=== PATIENT | female | born 1990 | race Caucasian/White ===

== ENCOUNTER 2019-09-17 10:00 | Inpatient (IN) | payer BC ==
[2019-09-13 13:51] VITALS: BMI 39.5
[2019-09-17] MEDS ORDERED: CITRIC ACID-SODIUM CITRATE 15 ML CUP PO ONE (10:04)
[2019-09-17] MEDS ORDERED: LACTATED RINGERS 1,000 ML IV ONE (10:04)
[2019-09-17] MEDS: LACTATED RINGERS 1,000 ML IV SCH ×5 (10:22→23:20)
[2019-09-17 11:56] LABS: Basophils % (A) 0 %; Eosinophils # (A) 0.1 k/uL (0-0.7); Eosinophils % (A) 2 %; HCT 32.7 % (34.0-46.0); HGB 11.6 gm/dL (11.4-16.0); Lymphocytes # (A) 1.5 k/uL (1.0-4.8); Lymphocytes % (A) 20 %; MCH 30.1 pg (25.0-35.0); MCHC 35.4 g/dL (31.0-37.0); MCV 84.9 fL (80.0-100.0); Mean Platelet Volume 9.5; Monocytes # (A) 0.4 k/uL (0-1.0); Monocytes % (A) 5 %; Neutrophils # (A) 5.4 k/uL (1.3-7.7); Neutrophils % (A) 72 %; Platelet Count 172 k/uL (150-450); RBC 3.85 m/uL (3.80-5.40); RDW 13.5 % (11.5-15.5); WBC 7.4 k/uL (3.8-10.6)
--- NOTE | 2019-09-17 11:56 | P.HPOB ---
History of Present Illness H&P Date: 09/17/19 Chief Complaint: 39-0/7 weeks, large for gestational age fetus The patient is a 28-year-old 1 para 0 admitted at 39-0/7 weeks as established by in vitro fertilization dating parameters. She is admitted for an elective primary low-transverse section secondary to findings of macrosomia with estimated weight at greater than the 99th percentile at 35 weeks and is anticipated possible weight of well over 4000 g. Her has been otherwise uncomplicated and group B strep status is negative. On labor and delivery, all signs are reassuring. Obstetrical history: 1 para 0 with current statistics listed above. EDC of 09/24/2019 was established by in vitro fertilization dating parameters. Laboratory workup demonstrates a blood type of O+ with a negative antibody screen. Rubella status is immune. Remainder of the laboratory workup was within normal limits. Second trimester Glucola is normal and group B strep status is negative. Gynecologic history: Unremarkable with no history of any infections to include STDs. Review of Systems Review of systems is confined to history of present illness. Past Medical History Past Medical History: No Reported History History of Any Multi-Drug Resistant Organisms: None Reported Additional Past Surgical History / Comment(s): IVF procedures, wisdom teeth removed Past Anesthesia/Blood Transfusion Reactions: No Reported Reaction Past Psychological History: No Psychological Hx Reported Smoking Status: Never smoker Past Alcohol Use History: None Reported Past Drug Use History: None Reported - Past Family History Mother Family Medical History: No Reported History Medications and Allergies Home Medications Medication Instructions Recorded Confirmed Type Pnv No.95/Ferrous Fum/Folic AC 1 each PO DAILY 09/13/19 09/17/19 History [ Multivitamin Tablet] Allergies Allergy/AdvReac Type Severity Reaction Status Date / Time No Known Allergies Allergy Verified 09/17/19 10:19 Exam Vital Signs Temp Pulse Resp BP 09/17/19 10:02 97.8 F 85 18 146/91 Intake and Output 09/16/19 09/17/19 09/17/19 22:59 06:59 14:59 Other: Weight 111.13 kg In general, this is a well-developed, well-nourished white female in no acute distress. Her heart has a regular rhythm and rate without murmur. Her lungs are clear to auscultation bilaterally in all collins. Her abdomen is gravid, non distended, has normal active bowel sounds, soft, nontender, and without any palpable masses aside from uterine fundus. Her extremities are without any cyanosis, clubbing, or significant edema and are nontender to palpation. Digital cervical examination is deferred. Assessment and Plan (1) Term Current Visit: Yes Status: Acute Code(s): Z34.90 - ENCNTR FOR SUPRVSN OF NORMAL , UNSP, UNSP TRIMESTER SNOMED Code(s): 86017628 (2) Large for gestational age fetus Current Visit: Yes Status: Acute Code(s): NVB9863 - SNOMED Code(s): 060871295 Plan: The options under the circumstances of a suspected macrosomic fetus had been thoroughly discussed in the office in the decision had been made to proceed with primary low-transverse section secondary to the suspected size of the fetus and potential risk for injury either to mother or baby. As result, she'll be taken to the operating room for primary low-transverse section. The risks and complications of the procedure itself had been thoroughly discussed and she has understood and agreed to proceed.
[2019-09-17] MEDS ORDERED: KETOROLAC 30 MG/ML 1 ML VIAL ONE (12:07)
[2019-09-17] MEDS ORDERED: MORPHINE SULFATE (PF) 0.3 MG/0.3 ML SYR ONE (12:07)
[2019-09-17] MEDS ORDERED: OXYTOCIN 10 UNIT/ML 1 ML VIAL ONE (12:07)
[2019-09-17] MEDS ORDERED: NALBUPHINE 10 MG/ML (1 ML AMP) ONE (12:07)
[2019-09-17] MEDS ORDERED: ONDANSETRON 4 MG/2 ML VIAL ONE (12:07)
[2019-09-17] MEDS ORDERED: NALOXONE 0.4 MG/ML 1 ML VIAL IV PRN (12:56)
[2019-09-17] MEDS ORDERED: HYDROmorphone 0.5 MG/0.5 ML SYRINGE IVP PRN (12:56)
[2019-09-17] MEDS ORDERED: diphenhydrAMINE 50 MG/ML 1 ML VIAL IVP PRN ×2 (12:56→13:07)
[2019-09-17] MEDS ORDERED: ONDANSETRON 4 MG/2 ML VIAL IVP PRN (12:56)
[2019-09-17] MEDS ORDERED: METOCLOPRAMIDE 5 MG/ML 2 ML VIAL IVP PRN (13:07)
[2019-09-17] MEDS ORDERED: LANOLIN CREAM 5 GM TUBE TOPICAL PRN (13:07)
[2019-09-17] MEDS ORDERED: diphenhydrAMINE 50 MG CAP PO PRN (13:07)
[2019-09-17] MEDS ORDERED: HYDROcodone/APAP 7.5-325MG 1 EACH TAB PO PRN (13:07)
[2019-09-17] MEDS ORDERED: HYDROcodone/APAP 5-325MG 1 EACH TAB PO PRN (13:07)
[2019-09-17] MEDS ORDERED: diphenhydrAMINE 25 MG CAP PO PRN (13:07)
[2019-09-17] MEDS ORDERED: ZOLPIDEM 5 MG TAB PO PRN (13:07)
[2019-09-17] MEDS ORDERED: SIMETHICONE 80 MG CHEWABLE PO PRN (13:07)
[2019-09-17] MEDS ORDERED: OXYTOCIN 20 UNITS/1000 ML NS 1,000 ML IV SCH (13:15)
--- NOTE | 2019-09-17 13:15 | P.OP ---
Date of Procedure: 09/17/19 Preoperative Diagnosis: #1. 39-0/7 weeks, suspected macrosomia Postoperative Diagnosis: Same Procedure(s) Performed: #1. Primary low-transverse section Anesthesia: spinal Surgeon: Montez Johnston Licensed Life And Health Agent #1: Terri Adams Estimated Blood Loss (ml): 455 IV fluids (ml): 1,100 Urine output (ml): 200 Pathology: none sent Condition: stable Disposition: floor Operative Findings: The patient was taken the operating room where she was delivered by primary low- transverse section of a viable 9 lbs. 10 oz. baby boy with Apgars of 9 at 1 minute and 9 at 5 minutes delivered in the left occiput anterior position. The placenta was delivered spontaneously, intact, and grossly normal with a grossly normal three-vessel cord. There was a true knot noted in the cord. The uterus, tubes, and ovaries were entirely normal to inspection with the exception of a very small less than 2 cm subserosal fibroid on the lowest portion of the fundus on the right side above the level of the lower uterine segment incision. Description of Procedure: The patient was prepped and draped in usual fashion after spinal anesthesia was administered by the anesthesiologist. A Pfannenstiel incision was made and extended into the abdominal cavity without difficulty. The bladder peritoneum was well distal to the intended site of incision was left intact. A 2 cm incision was made in the transverse plane of the lower uterine segment to enter the uterus at which time a copious amount of clear fluid was noted. The incision was extended in both directions using the bandage scissors. The head was delivered up and through the incision where the nose and mouth were thoroughly suctioned. Remainder of the infant was delivered onto the field where the cord was doubly clamped, cut, and the infant passed for resuscitative measures with weight and Apgars as noted above. There was noted to be a true knot in the cord. A segment of cord was doubly clamped, cut, and set aside s hould cord gases become necessary. The placenta was delivered spontaneously, intact, and grossly normal as noted above with uterine fundal massage and gentle traction. The uterus was exteriorized and the interior cavity of the uterus swept of any remaining placental or membranous fragments. The margins of the incision were grasped with Pemberton clamps and the incision closed in 2 layers. The first layer was a running locking stitch of 0 chromic catgut from margin to margin followed by a running imbricating layer of 0 chromic catgut from margin to margin. Following closure, there was noted be 2 small points of ongoing oozing, one at each angle. Each was made hemostatic with a [id number]-bhpbd stitch of 0 chromic catgut. The posterior cul-de-sac was suctioned with a guard as well as a laparotomy sponge and the uterine and ovarian findings are as noted above, normal aside from a small fibroid on the left lower portion of the anterior uterus. The uterus was replaced within the abdominal cavity and the gutters swept of any remaining blood, fluid, or clot. Careful examination incision demonstrated excellent hemostasis. Any small points of bleeding were made hemostatic with the Bovie. After ensuring hemostasis, the parietal peritoneum was loosely reapproximated in the layer of muscles examined and made hemostatic with the Bovie. The fascia was closed with 2 running stitches of 0 Vicryl proceeding from the lateral margins to the midpoint. The subcutaneous tissues were irrigated, made hemostatic with the Bovie, and closed with a running stitch of 30 plain catgut from margin to margin. The skin was retracted with a running subcuticular stitch of 4-0 Vicryl followed by half-inch Steri-Strips placed with Mastisol. Estimated blood loss for the entire case was 455 mL. There were no complications. All sponge, instrument, and needle counts were correct. The patient tolerated the procedure well and proceeded to the recovery room in stable condition. Both mother and infant are resting comfortably in recovery.
[2019-09-17] MEDS: SENNOSIDES-DOCUSATE SODIUM 1 EACH TAB PO SCH (20:48)
[2019-09-17] MEDS: KETOROLAC 30 MG/ML 1 ML VIAL IVP PRN (20:48)
[2019-09-17] MEDS: ACETAMINOPHEN TAB 325 MG TAB PO PRN (23:48)
[2019-09-18] MEDS: KETOROLAC 30 MG/ML 1 ML VIAL IVP PRN ×2 (03:17→10:57)
[2019-09-18] MEDS: LACTATED RINGERS 1,000 ML IV SCH (04:12)
[2019-09-18 06:12] LABS: Basophils % (A) 0 %; Eosinophils # (A) 0.1 k/uL (0-0.7); Eosinophils % (A) 1 %; HCT 32.4 % (34.0-46.0); Lymphocytes # (A) 1.9 k/uL (1.0-4.8); Lymphocytes % (A) 17 %; MCH 29.2 pg (25.0-35.0); MCHC 34.1 g/dL (31.0-37.0); MCV 85.7 fL (80.0-100.0); Mean Platelet Volume 9.5; Monocytes # (A) 0.6 k/uL (0-1.0); Monocytes % (A) 5 %; Neutrophils # (A) 8.9 k/uL (1.3-7.7); Neutrophils % (A) 76 %; Platelet Count 162 k/uL (150-450); RBC 3.78 m/uL (3.80-5.40); RDW 13.5 % (11.5-15.5); WBC 11.6 k/uL (3.8-10.6)
--- NOTE | 2019-09-18 06:46 | P.PN ---
Progress Note - Text Progress Note Date: 09/18/19 Postoperative day 1 status post section under spinal anesthesia and in trathecal Duramorph for postoperative analgesia.The patient is doing well, there is mild generalized skin itching. There are no other anesthesia related complications. The patient denies any paresthesia or weakness in the lower extremities. Further management as per the patient primary team.
--- NOTE | 2019-09-18 07:52 | P.PNOBGPC ---
Subjective - Subjective Patient reports: Reports appetite normal, Reports voiding normally, Reports pain well controlled, Reports ambulating normally : doing well, nursing well Objective - Vital Signs Latest vital signs: Vital Signs Temp Pulse Resp BP Pulse Ox 09/18/19 07:00 16 09/18/19 04:12 16 96 09/18/19 03:40 97.8 F 71 16 139/93 96 09/18/19 01:00 16 97 09/17/19 23:57 98.2 F 69 16 136/89 97 09/17/19 23:00 16 09/17/19 21:00 16 96 09/17/19 20:00 16 134/94 96 09/17/19 19:00 97.7 F 64 16 143/96 98 09/17/19 17:56 98 09/17/19 17:00 16 09/17/19 15:44 16 98 09/17/19 15:05 97.1 F L 72 16 138/90 98 09/17/19 14:22 73 18 127/92 98 09/17/19 14:07 79 16 142/74 98 09/17/19 13:56 16 99 09/17/19 13:37 60 16 134/60 95 09/17/19 13:21 65 16 122/72 96 09/17/19 13:07 97.1 F L 55 L 16 122/63 98 09/17/19 12:56 16 96 09/17/19 10:02 97.8 F 85 18 146/91 Intake and Output 09/17/19 09/18/19 09/18/19 22:59 06:59 14:59 Intake Total 375 Output Total 800 350 Balance -425 -350 Intake: IV 375 Output: Urine 700 350 Uretheral (Sanchez) 300 350 Emesis 100 Other: # Voids 0 - Exam Extremities: Present: normal Abdomen: Present: normal appearance, soft. Absent: distention, tenderness Incision: Present: normal, dry, intact Uterus: Present: normal, firm (The uterine fundus is tonic and minimally tender below the umbilicus.) - Labs Labs: Abnormal Lab Results - Last 24 Hours (Table) 09/17/19 09/18/19 Range/Units 11:37 05:52 WBC 11.6 H (3.8-10.6) k/uL RBC 3.78 L (3.80-5.40) m/uL Hgb 11.0 L (11.4-16.0) gm/dL Hct 32.7 L 32.4 L (34.0-46.0) % Neutrophils # 8.9 H (1.3-7.7) k/uL Assessment and Plan (1) Term Current Visit: Yes Status: Acute Code(s): Z34.90 - ENCNTR FOR SUPRVSN OF NORMAL , UNSP, UNSP TRIMESTER SNOMED Code(s): 32754656 (2) Large for gestational age fetus Current Visit: Yes Status: Acute Code(s): MFG7084 - SNOMED Code(s): 583596917 (3) S/P section Current Visit: Yes Status: Acute Code(s): Z98.891 - HISTORY OF UTERINE SCAR FROM PREVIOUS SURGERY SNOMED Code(s): 973154203 Plan: Continue routine postoperative care. I would anticipate possible discharge home tomorrow pending no complications. The patient has not yet voided on her own but I anticipate that resolving this morning as well. IV fluids will continue until she does so. I have encouraged ambulate in the hallways routinely.
[2019-09-18] MEDS: SENNOSIDES-DOCUSATE SODIUM 1 EACH TAB PO SCH ×2 (08:36→19:31)
[2019-09-18] MEDS: ACETAMINOPHEN TAB 325 MG TAB PO PRN ×3 (08:36→21:32)
[2019-09-18] MEDS: IBUPROFEN 600 MG TAB PO PRN (19:31)
[2019-09-19] MEDS: IBUPROFEN 600 MG TAB PO PRN ×2 (03:36→10:04)
[2019-09-19] MEDS: ACETAMINOPHEN TAB 325 MG TAB PO PRN (05:48)
[2019-09-19] MEDS: SENNOSIDES-DOCUSATE SODIUM 1 EACH TAB PO SCH (08:16)
--- NOTE | 2019-09-19 08:49 | P.DS ---
Providers Date of admission: 09/17/19 10:00 Expected date of discharge: 09/19/19 Attending physician: Montez Johnston Primary care physician: Stated None - Discharge Diagnosis(es) (1) Term Current Visit: Yes Status: Acute (2) Large for gestational age fetus Current Visit: Yes Status: Acute (3) S/P section Current Visit: Yes Status: Acute Hospital Course: The patient is a 28-year-old 1 para 0 admitted at 39-0/7 weeks by good dating parameters. She is admitted for elective primary low-transverse section secondary to suspected significant macrosomia. Her was otherwise uncomplicated and group B strep status is negative. She was taken to the operating room where she was delivered of a viable 9 lbs. 10 oz. baby boy with Apgars of 9 at 1 minute and 9 at 5 minutes. Her and postoperative course has been entirely unremarkable with vital signs remaining stable and her temperature was afebrile throughout. She was deemed stable for discharge on and postoperative day #2 and was discharged home to follow-up in the office in 2 weeks for an incision check and 6 weeks routinely. Discharge instructions included calling for any significantly increased bleeding or foul-smelling lochia, significantly increased fever or abdominal pain, perineal complaints, breast complaints, incisional complaints, or anything else that concerned her. She was additionally instructed to have nothing in the vagina for at least 6 weeks time to include intercourse and to abstain from any heavy lifting over the same period of time. She is lastly instructed to do no driving until off of all pain medications or 2 weeks' time, whichever came first. She understood all of her instructions and agrees to follow up as noted above. Discharge medications included continued vitamins as she has opted to breast-feed, [id number] analgesic pain medications, and a prescription for Tylenol 3, 1-2 by mouth every 6 hours when necessary pain, #20 dispensed with no refills. Maternal blood type is O+ and rubella status is immune. Discharge hemoglobin and hematocrit were 11.0 and 32.4 respectively. Procedures: #1. Primary low-transverse section Patient Condition at Discharge: Stable Plan - Discharge Summary Discharge Rx Participant: Yes New Discharge Prescriptions: No Action Pnv No.95/Ferrous Fum/Folic AC [ Multivitamin Tablet] 1 each PO DAILY Discharge Medication List Pnv No.95/Ferrous Fum/Folic AC [ Multivitamin Tablet] 1 each PO DAILY 09/13/19 [History] Follow up Appointment(s)/Referral(s): Montez Johnston MD [STAFF PHYSICIAN] - 2 Weeks Discharge Disposition: HOME SELF-CARE
[2019-09-19 09:19] VITALS: BP 133/99; PULSE 78; TEMP 98.1
[2019-09-19 09:20] VITALS: RESP 16
== END 2019-09-19 11:45 | disposition home or self-care (01) | DRG 788 ==
LOC: 4FBP 10:00 → MERGE 10:00
PROVIDERS: ADMIT Obstetrics & Gynecology; ATTEND Obstetrics & Gynecology
PROC: 10D00Z1 Extraction of Products of Conception, Low, Open Approach (ICD-10-PCS; principal; 2019-09-17 12:07)
DX: O36.63X0 Maternal care for excessive fetal growth, third trimester, not applicable or unspecified (principal); O69.2XX0 Labor and delivery complicated by other cord entanglement, with compression, not applicable or unspecified; D25.2 Subserosal leiomyoma of uterus; O34.13 Maternal care for benign tumor of corpus uteri, third trimester; Z79.899 Other long term (current) drug therapy; Z3A.39 39 weeks gestation of pregnancy; Z37.0 Single live birth
CPT/HCPCS: 85025; 86850; 86900; 86901

== ENCOUNTER → 2021-02-20 | Outpatient (CLI) | payer BC ==
[2021-02-20 14:33] LABS: Hepatitis B Surface Antigen Nonreactive (Nonreactive)
[2021-02-20 15:01] LABS: Basophils # (A) 0.04 X 10*3/uL (0.00-0.10); Basophils % (A) 0.5 %; Eosinophils # (A) 0.25 X 10*3/uL (0.04-0.35); Eosinophils % (A) 3.3 %; HGB 12.5 g/dL (12.0-15.0); Lymphocytes % (A) 16.9 %; MCH 27.4 pg (27.0-32.0); MCHC 32.1 g/dL (32.0-37.0); MCV 85.3 fL (80.0-97.0); Mean Platelet Volume 10.4 fL (9.5-12.2); Monocytes % (A) 7.8 %; Neutrophils # (A) 5.48 X 10*3/uL (1.80-7.70); Neutrophils % (A) 71.2 %; Platelet Count 255 X 10*3/uL (140-440); RBC 4.57 X 10*6/uL (4.10-5.20); RDW 12.7 % (11.5-14.5); WBC 7.69 X 10*3/uL (4.50-10.00)
[2021-02-20 16:53] LABS: HIV 2 AB Non-Reactive (Non-Reactive); HIV AB P24 Non-Reactive (Non-Reactive); HIV P24 AG Non-Reactive (Non-Reactive)
== END | disposition home or self-care (01) ==
LOC: LABWHC1 07:34
PROVIDERS: ATTEND Obstetrics & Gynecology
DX: O99.210 Obesity complicating pregnancy, unspecified trimester (principal); Z3A.00 Weeks of gestation of pregnancy not specified
CPT/HCPCS: 36415; 82950; 83036; 85025; 86762; 86780; 86850; 86900; 86901; 87340; 87390

== ENCOUNTER → 2021-06-06 | Outpatient (CLI) | payer BC | END | disposition home or self-care (01) | LOC: LABWHC1 08:19 | PROVIDERS: ATTEND Obstetrics & Gynecology | DX: Z36.9 Encounter for antenatal screening, unspecified (principal) | CPT/HCPCS: 36415; 82950 ==

== ENCOUNTER 2021-09-01 09:38 | Inpatient (IN) | payer BC ==
[2021-08-31 11:22] VITALS: BMI 43.5
[2021-09-01] MEDS ORDERED: CITRIC ACID-SODIUM CITRATE 15 ML CUP PO ONE (10:14)
[2021-09-01] MEDS ORDERED: LACTATED RINGERS 1,000 ML IV ONE (10:14)
--- NOTE | 2021-09-01 10:22 | P.HPOB ---
History of Present Illness H&P Date: 09/01/21 Chief Complaint: Term , history of previous This is a 30 year old 2 para 1001 woman with an estimated due date of 09/08/2021 based on LMP consistent with 9 week ultrasound. She is admitted at 39 weeks gestation for a repeat low transverse section. Her has been complicated by maternal Clomid infection as well as findings of polyhydramnios. The baby has been monitored by testing with weekly NSTs which have all been reassuring. She had a previous low transverse section in 2019 for macrosomia with an infant weighing 9 lbs. 10 oz. Laboratory data: Blood type O+, antibody screen negative, rubella immune, VDRL nonreactive, hepatitis B surface antigen negative, HIV negative, gonorrhea clinic cultures negative, diabetes screening negative, group B strep negative. Review of Systems All systems: negative Past Medical History Past Medical History: No Reported History History of Any Multi-Drug Resistant Organisms: None Reported Past Surgical History: Section Additional Past Surgical History / Comment(s): IVF procedures, wisdom teeth removed, section X1. Past Anesthesia/Blood Transfusion Reactions: Postoperative Nausea & Vomiting (PONV) Additional Past Anesthesia/Blood Transfusion Reaction / Comment(s): Aunt PONV. Past Psychological History: No Psychological Hx Reported Smoking Status: Never smoker Past Alcohol Use History: None Reported Past Drug Use History: None Reported - Past Family History Mother Family Medical History: No Reported History Medications and Allergies Home Medications Medication Instructions Recorded Confirmed Type Pnv No.95/Ferrous Fum/Folic AC 1 each PO DAILY 09/13/19 08/31/21 History [ Multivitamin Tablet] Antacid (Unknown Name/Dose) 1 tab PO DAILY 08/31/21 08/31/21 History Aspirin [Adult Low Dose Aspirin EC] 81 mg PO DAILY 08/31/21 08/31/21 History Allergies Allergy/AdvReac Type Severity Reaction Status Date / Time No Known Allergies Allergy Verified 09/01/21 10:13 Exam Targeted physical exam is performed. This is a pleasant and comfortable appearing female who is visibly gravid. HEENT exam unremarkable. Her breathing is unlabored and her heart is a regular rate and rhythm. The abdomen is gravid soft and nontender and size appears appropriate for dates. She has 1+ bilateral lower extremity edema. Pelvic examination is deferred. heart tones are category 1 by external monitoring. Assessment and Plan (1) 39 weeks gestation of Current Visit: Yes Status: Acute Code(s): Z3A.39 - 39 WEEKS GESTATION OF SNOMED Code(s): 78284226 (2) History of Current Visit: Yes Status: Acute Code(s): Z98.891 - HISTORY OF UTERINE SCAR FROM PREVIOUS SURGERY SNOMED Code(s): 171752542 (3) Polyhydramnios Current Visit: Yes Status: Acute Code(s): O40.9XX0 - POLYHYDRAMNIOS, UNSP TRIMESTER, NOT APPLICABLE OR UNSP SNOMED Code(s): 04577433 Plan: This is a 30-year-old 2 para 1001 woman admitted at 39+ weeks gestation for scheduled repeat low transverse section. She has declined a trial of labor. Risks of the including bleeding, transfusion, infection, injury to maternal and/or structures have been reviewed with the patient in the outpatient setting as well as again today. Consent is obtained. status is currently reassuring by external monitoring.
[2021-09-01] MEDS ORDERED: ceFAZolin 3 GM in SODIUM CHLORIDE 0.9% 100 ML IVPB ONE (10:30)
[2021-09-01 10:47] LABS: Basophils # (A) 0.1 k/uL (0-0.2); Basophils % (A) 1 %; Eosinophils # (A) 0.1 k/uL (0-0.7); Eosinophils % (A) 1 %; HCT 35.4 % (34.0-46.0); HGB 11.5 gm/dL (11.4-16.0); Lymphocytes # (A) 1.9 k/uL (1.0-4.8); Lymphocytes % (A) 20 %; MCHC 32.4 g/dL (31.0-37.0); MCV 80.2 fL (80.0-100.0); Mean Platelet Volume 9.1; Monocytes # (A) 0.5 k/uL (0-1.0); Monocytes % (A) 5 %; Neutrophils # (A) 6.6 k/uL (1.3-7.7); Neutrophils % (A) 72 %; Platelet Count 234 k/uL (150-450); RBC 4.41 m/uL (3.80-5.40); RDW 13.8 % (11.5-15.5); WBC 9.2 k/uL (3.8-10.6)
[2021-09-01] MEDS ORDERED: KETOROLAC 15 MG/ML 1 ML VIAL ONE (10:54)
[2021-09-01] MEDS ORDERED: NALBUPHINE 10 MG/ML (1 ML AMP) ONE (10:54)
[2021-09-01] MEDS ORDERED: ONDANSETRON 4 MG/2 ML VIAL ONE (10:54)
[2021-09-01] MEDS ORDERED: DEXAMETHASONE SOD PHOSPHATE 10 MG/ML 1 ML VIAL ONE (10:54)
[2021-09-01] MEDS ORDERED: SUCCINYLCHOLINE CHLORIDE 100 MG/5 ML SYR IV ONE (10:54)
[2021-09-01] MEDS ORDERED: OXYTOCIN 30 UNITS/500 ML NS BAG IV ONE (10:54)
[2021-09-01] MEDS ORDERED: MORPHINE SULFATE (PF) 0.3 MG/0.3 ML SYR ONE (10:54)
[2021-09-01] MEDS ORDERED: fentaNYL (PF) 50 MCG/ML 2 ML AMP ONE (10:54)
[2021-09-01] MEDS ORDERED: diphenhydrAMINE 50 MG/ML 1 ML VIAL ONE (10:54)
[2021-09-01] MEDS ORDERED: PROPOFOL 10 MG/ML 20 ML VIAL IV ONE (10:54)
[2021-09-01] MEDS ORDERED: diphenhydrAMINE 50 MG CAP PO PRN (11:57)
[2021-09-01] MEDS ORDERED: ONDANSETRON 4 MG/2 ML VIAL IVP PRN (11:57)
[2021-09-01] MEDS ORDERED: diphenhydrAMINE 50 MG/ML 1 ML VIAL IVP PRN ×2 (11:57)
[2021-09-01] MEDS ORDERED: METOCLOPRAMIDE 5 MG/ML 2 ML VIAL IVP PRN (11:57)
[2021-09-01] MEDS ORDERED: diphenhydrAMINE 25 MG CAP PO PRN (11:57)
[2021-09-01] MEDS ORDERED: ZOLPIDEM 5 MG TAB PO PRN (11:57)
[2021-09-01] MEDS ORDERED: NALOXONE 0.4 MG/ML 1 ML VIAL IV PRN (11:57)
--- NOTE | 2021-09-01 11:57 | P.OP ---
Date of Procedure: 09/01/21 Preoperative Diagnosis: Intrauterine at 39 weeks History of previous low transverse section Polyhydramnios Postoperative Diagnosis: Intrauterine at 39 weeks gestation History of previous Polyhydramnios Fibroid uterus Nuchal cord 1 Procedure(s) Performed: Repeat low transverse section Anesthesia: GETA, spinal Surgeon: Susan Morocho Jet Inspector #1: Terri Adams Estimated Blood Loss (ml): 400 IV fluids (ml): 1,000 Urine output (ml): 400 Pathology: none sent Condition: stable Disposition: floor Indications for Procedure: previous low transverse section, declines trial of labor Operative Findings: Male infant in the vertex presentation with Apgars of 9 at 1 minute and 9 at 5 minutes weighing 8 lbs. 10 oz., intact three-vessel cord placenta. Normal- appearing bilateral fallopian tubes and ovaries. Multiple small subserosal fibroids. Description of Procedure: After the patient was met preoperatively and all questions were answered, she was taken to the operating room where spinal anesthetic was administered without incident. The spinal anesthetic however was not adequate for the procedure therefore general anesthetic was administered. She was then positioned, prepped and draped in the dorsal supine position with a leftward tilt. Sanchez catheter was placed. After anesthetic was confirmed adequate, a low transverse skin incision was made following the pre-existing scar. This was carried down to the underlying fascia both sharply and with the electrocautery. The fascia was then incised in the midline and extended bilaterally with the Villatoro scissors. The superior aspect of the fascial incision was elevated and the underlying rectus muscles dissected off sharply and with the electrocautery. The inferior aspect of the fascial incision was also elevated and the underlying rectus muscles dissected off sharply. The muscles were adherent in the midline. These were bluntly and the peritoneum was tented up with hemostats. The peritoneum was entered sharply with the Metzenbaum scissors. The peritoneal incision was extended inferiorly and superiorly with good visualization of the bladder. The bladder blade was placed. The vesicouterine peritoneum was identified, tented up and entered sharply, the bladder flap was created both sharply and digitally. A low transverse uterine incision was then made sharply and carried down to the underlying amniotic membranes. Membranes were ruptured and clear fluid was noted. The uterine incision was extended bilaterally bluntly. The 's head was delivered from the incision without difficulty. Vocal cord 1 was reduced. The nose and mouth were bulb suctioned. The rest of the infant was delivered onto the field without difficulty. And cut and the was taken to the warmer. An intact, three-vessel cord placenta was then manually removed and the uterus was exteriorized. The uterus was cleared of all clot and debris. The uterine incision was delineated with Pemberton clamps. The uterine incision was then closed in a running locked fashion with 0 Vicryl suture. Additional etmuer-dw-bevit sutures were placed where necessary along the incision for hemostasis. The uterus was then returned to the abdomen and the gutters were cleared of all clot and debris. The uterine incision was rein spected and Bovie electrocautery was utilized were necessary for hemostasis. The fascial edges, peritoneal edges and rectus muscles were inspected and Bovie electrocautery utilized were necessary for hemostasis. The fascia was then closed in a running fashion with 0 Vicryl suture. The subcuticular tissue was copiously suction irrigated and Bovie electrocautery utilized were necessary for hemostasis. 3-0 Vicryl suture was utilized to reapproximate the subcuticular tissue. The skin was then closed in a subcutaneous fashion with 4-0 Vicryl suture. All counts reported to me as correct by the operating room staff at the end of the procedure. The patient received antibiotics preoperatively and Pitocin following cord clamp. Mother and infant were both transported from the room in stable condition.
[2021-09-01] MEDS ORDERED: ACETAMINOPHEN IV (For NPO) 1,000 MG in EMPTY BAG 1 BAG IVPB SCH (12:00)
[2021-09-01] MEDS: ACETAMINOPHEN IV (For NPO) 1,000 MG in EMPTY BAG 1 BAG IVPB SCH ×2 (12:38→18:49)
[2021-09-01] MEDS: KETOROLAC 15 MG/ML 1 ML VIAL IVP SCH ×2 (17:30→23:38)
[2021-09-01] MEDS ORDERED: ACETAMINOPHEN IV (For NPO) 1,000 MG in EMPTY BAG 1 BAG IVPB PRN (18:00)
[2021-09-01] MEDS: SENNOSIDES-DOCUSATE SODIUM 1 EACH TAB PO SCH ×2 (21:47→23:46)
[2021-09-01] MEDS: LACTATED RINGERS 1,000 ML IV SCH ×3 (21:47→23:46)
[2021-09-02] MEDS: ACETAMINOPHEN TAB 500 MG TAB PO PRN ×4 (02:10→21:17)
[2021-09-02 05:54] VITALS: RESP 16
[2021-09-02] MEDS: IBUPROFEN 600 MG TAB PO PRN ×3 (05:54→18:12)
[2021-09-02 07:26] LABS: Basophils % (A) 0 %; Eosinophils # (A) 0.1 k/uL (0-0.7); Eosinophils % (A) 1 %; HCT 32.7 % (34.0-46.0); HGB 10.5 gm/dL (11.4-16.0); Lymphocytes # (A) 2.9 k/uL (1.0-4.8); Lymphocytes % (A) 23 %; MCH 26.2 pg (25.0-35.0); MCHC 31.9 g/dL (31.0-37.0); MCV 81.9 fL (80.0-100.0); Mean Platelet Volume 8.8; Monocytes # (A) 0.7 k/uL (0-1.0); Monocytes % (A) 6 %; Neutrophils # (A) 8.6 k/uL (1.3-7.7); Neutrophils % (A) 69 %; Platelet Count 210 k/uL (150-450); WBC 12.5 k/uL (3.8-10.6)
[2021-09-02] MEDS: SENNOSIDES-DOCUSATE SODIUM 1 EACH TAB PO SCH ×2 (08:08→20:10)
--- NOTE | 2021-09-02 08:21 | P.PNOBGPC ---
Subjective - Subjective Principal diagnosis: Postoperative day 1 Interval history: Feeling well, no nausea or vomiting. Pain well-controlled Patient reports: Reports appetite normal, Reports voiding normally, Reports pain well controlled, Reports ambulating normally, Denies dizzy ambulation, Denies nauseated : doing well, nursing well Objective - Vital Signs Latest vital signs: Vital Signs Temp Pulse Resp BP Pulse Ox 09/02/21 04:00 98.1 F 62 16 125/86 09/02/21 00:00 98.4 F 63 14 130/73 99 09/01/21 20:00 98.2 F 69 16 127/69 97 09/01/21 14:12 98.3 F 62 16 130/69 97 09/01/21 13:42 64 17 121/66 98 09/01/21 13:10 97.3 F L 64 17 133/66 98 09/01/21 12:55 74 16 142/66 97 09/01/21 12:42 62 16 134/81 98 09/01/21 12:27 64 17 121/66 98 09/01/21 12:12 96.8 F L 84 17 128/72 97 09/01/21 10:46 97.9 F 73 17 141/83 98 Intake and Output 09/01/21 09/02/21 09/02/21 22:59 06:59 14:59 Output Total 800 Balance -800 Output: Urine 800 Uretheral (Sanchez) 400 - Exam Extremities: Present: normal Abdomen: Present: normal appearance, soft. Absent: tenderness Incision: Present: normal, dry, intact. Absent: erythematous Uterus: Present: normal, firm. Absent: tenderness - Labs Labs: Abnormal Lab Results - Last 24 Hours (Table) 09/02/21 Range/Units 07:02 WBC 12.5 H (3.8-10.6) k/uL Hgb 10.5 L (11.4-16.0) gm/dL Hct 32.7 L (34.0-46.0) % Neutrophils # 8.6 H (1.3-7.7) k/uL Assessment and Plan (1) 39 weeks gestation of Current Visit: Yes Status: Acute Code(s): Z3A.39 - 39 WEEKS GESTATION OF SNOMED Code(s): 28585979 (2) History of Current Visit: Yes Status: Acute Code(s): Z98.891 - HISTORY OF UTERINE SCAR FROM PREVIOUS SURGERY SNOMED Code(s): 082803495 (3) Polyhydramnios Current Visit: Yes Status: Acute Code(s): O40.9XX0 - POLYHYDRAMNIOS, UNSP TRIMESTER, NOT APPLICABLE OR UNSP SNOMED Code(s): 37006124 Plan: Postop day 1 status post repeat low transverse section. Recovering well. Routine care.
--- NOTE | 2021-09-02 09:23 | P.PN ---
Progress Note - Text Progress Note Date: 09/02/21 Postoperative day 1 status post section under spinal anesthesia,, and converted to general endotracheal anesthesia, and intrathecal morphine given for postoperative analgesia, patient doing well, there is no anesthesia related complications, Patient had no headache, vital signs stable , Assessment and plan= postop day 1 status post , doing well there is no anesthesia related complication.
[2021-09-02] MEDS: KETOROLAC 15 MG/ML 1 ML VIAL IVP SCH (15:21)
[2021-09-02] MEDS: HYDROmorphone 2 MG TAB PO PRN ×2 (16:58→22:43)
[2021-09-03] MEDS: IBUPROFEN 600 MG TAB PO PRN ×3 (00:21→12:01)
[2021-09-03] MEDS: ACETAMINOPHEN TAB 500 MG TAB PO PRN ×2 (03:05→09:20)
[2021-09-03] MEDS: HYDROmorphone 2 MG TAB PO PRN (04:45)
[2021-09-03 08:03] VITALS: BP 125/87; PULSE 101; TEMP 98.8
[2021-09-03] MEDS: SENNOSIDES-DOCUSATE SODIUM 1 EACH TAB PO SCH (08:06)
--- NOTE | 2021-09-03 08:36 | P.DS ---
Providers Date of admission: 09/01/21 09:53 Expected date of discharge: 09/03/21 Attending physician: Susan Morocho Primary care physician: Stated None - Discharge Diagnosis(es) (1) 39 weeks gestation of Current Visit: Yes Status: Acute (2) History of Current Visit: Yes Status: Acute (3) Polyhydramnios Current Visit: Yes Status: Acute Hospital Course: This is a 30-year-old 2 now para 2 woman who is admitted at 39 weeks gestation for scheduled repeat low transverse section. She had a complicated by polyhydramnios. Please see the admission history and physical for details. Following admission she did go to the operating room where she underwent an uncomplicated low transverse section. This was done under general anesthetic secondary to inadequate spinal anesthetic. Findings at the time of surgery were significant for a liveborn male with Apgars of 9 at 1 minute and 9 at 5 minutes weighing 8 lbs. 5 oz. Please see the operative report for details. The patient's postoperative course was unremarkable. By postoperative day #1 she was ambulating and voiding without difficulty. She was tolerating a general diet on and her vital signs are stable. By postoperative day #2 she continued to do well. She was thus breast- feeding successfully. Her incision was intact and well-healing. Her lochia was minimal. She was therefore discharged home with routine instructions for post- RN care and follow-up. Procedures: Repeat low transverse section Patient Condition at Discharge: Good Plan - Discharge Summary Discharge Rx Participant: Yes New Discharge Prescriptions: New HYDROcodone/APAP 5-325MG [[place] 5-325] 1 tab PO Q6HR PRN 3 Days #12 tab PRN Reason: Pain No Action Pnv No.95/Ferrous Fum/Folic AC [ Multivitamin Tablet] 1 each PO DAILY Aspirin [Adult Low Dose Aspirin EC] 81 mg PO DAILY Antacid (Unknown Name/Dose) 1 tab PO DAILY Discharge Medication List Pnv No.95/Ferrous Fum/Folic AC [ Multivitamin Tablet] 1 each PO DAILY 09/13/19 [History] Antacid (Unknown Name/Dose) 1 tab PO DAILY 08/31/21 [History] Aspirin [Adult Low Dose Aspirin EC] 81 mg PO DAILY 08/31/21 [History] HYDROcodone/APAP 5-325MG [[place] 5-325] 1 tab PO Q6HR PRN 3 Days #12 tab 09/03/21 [Rx] Follow up Appointment(s)/Referral(s): Montez Johnston MD [STAFF PHYSICIAN] - 2 Weeks Activity/Diet/Wound Care/Special Instructions: Follow-up in 2 weeks after surgery in the office. Call the office with any concerning signs or symptoms including fever greater than 101, severe abdominal pain, heavy vaginal bleeding, signs of wound infection, increased swelling or redness of the lower extremities, signs of depression. No driving for 2 weeks after surgery. No heavy lifting or vigorous activity until reevaluated in the office. No intercourse for 6 weeks after delivery.
== END 2021-09-03 13:00 | disposition home or self-care (01) | DRG 788 ==
LOC: 4FBP 09:53
PROVIDERS: ADMIT Obstetrics & Gynecology; ATTEND Obstetrics & Gynecology
PROC: 10D00Z1 Extraction of Products of Conception, Low, Open Approach (ICD-10-PCS; principal; 2021-09-03)
DX: O34.211 Maternal care for low transverse scar from previous cesarean delivery (principal); O40.3XX0 Polyhydramnios, third trimester, not applicable or unspecified; O69.81X0 Labor and delivery complicated by cord around neck, without compression, not applicable or unspecified; O34.13 Maternal care for benign tumor of corpus uteri, third trimester; D25.2 Subserosal leiomyoma of uterus; Z37.0 Single live birth; Z3A.39 39 weeks gestation of pregnancy; Z79.82 Long term (current) use of aspirin; Z98.890 Other specified postprocedural states; Z28.310 Unvaccinated for COVID-19; Z28.21 Immunization not carried out because of patient refusal
CPT/HCPCS: 85025; 86850; 86900; 86901